=== PATIENT | female | born 1970 | race Caucasian/White ===

== ENCOUNTER 2018-04-14 18:41 | Emergency (ER) | payer OTHER ==
[2018-04-14 18:48] VITALS: BP 149/101
--- NOTE | 2018-04-14 19:58 | EDPHY ---
H & P Time Seen by Provider: 04/14/18 19:32 HPI/ROS: CHIEF COMPLAINT: Left eye complaint HISTORY OF PRESENT ILLNESS: Patient is a 39-year-old female who presents emergency department with mild swelling in the left lateral aspect of her left eye. She states that she has been dealing with severe allergies. She is currently taking Claritin in the morning and Benadryl at night. She noticed the swelling in her left eye today. There is no redness. There is no pain. She has no visual change. No fevers or chills. No trauma. REVIEW OF SYSTEMS: My complete review of systems is negative except as mentioned in the HPI. Past Medical/Surgical History: Includes allergies Past surgical history: Appendectomy, T and a Smoking Status: Never smoked Physical Exam: Vitals noted GENERAL: Well-appearing, in no acute distress, alert. Visual acuity: Noted. Eyelids: Normal inspection, everted for exam. Conjunctiva and sclera: No foreign material. No subconjunctival hemorrhage. No exudate. Not injected. Patient has a small chemosis laterally of the left eye Corneas: Normal inspection. Examined with fluorescein dye: No uptake, abrasion, or ulcer. EOMs: Intact. Pupils: PERRL, normal accommodation. Anterior chambers: Normal inspection. No hyphema. No cells or flare. Posterior segments: Normal funduscopic exam NECK: [No thyromegaly, no lymphadenopathy, supple. RESPIRATORY: Clear to auscultation bilaterally, no rales, rhonchi or wheezing. CVS: Regular rate and rhythm, no rubs, murmurs, or gallops. ABDOMEN: Soft, nontender, nondistended, no organomegaly. SKIN: Normal color, no rash, warm, dry. No pallor. EXTREMITIES: No pedal edema, no calf tenderness, no Homans sign or cords, no joint swelling. NEURO/PSYCH: Alert and oriented x3, normal mood and affect, normal motor sensory exam. No obvious cranial nerve deficit. Constitutional: Initial Vital Signs Temperature (C) 36.7 C 04/14/18 18:46 Heart Rate 101 H 04/14/18 18:46 Respiratory Rate 16 04/14/18 18:46 Blood Pressure 149/101 H 04/14/18 18:46 O2 Sat (%) 95 04/14/18 18:46 O2 Delivery Mode Room Air Allergies/Adverse Reactions: penicillin G Allergy (Verified 04/14/18 18:45) Penicillins Allergy (Verified 04/14/18 18:45) Sulfa (Sulfonamide Antibiotics) Allergy (Verified 04/14/18 18:45) sulfamethoxazole [From Bactrim] Allergy (Verified 04/14/18 18:45) trimethoprim [From Bactrim] Allergy (Verified 04/14/18 18:45) Home Medications: Medication Instructions Recorded Claritin 04/14/18 Flonase Nasal [place] 04/14/18 Ketotifen Fumarate 04/14/18 Medical Decision Making ED Course/Re-evaluation: In the emergency department I discussed possible etiologies with the patient. I answered all her questions. Patient will follow up with Ophthalmology. She was given warnings prior to leaving. Patient will take Zyrtec daily as well as Benadryl. She also continues anti-inflammatory eyedrops. Differential Diagnosis: My differential includes but is not limited to conjunctivitis, ecchymosis, allergic reaction, pinquecula, pterygium Departure - Departure Disposition: Home, Routine, Self-Care Clinical Impression: Chemosis Qualifiers: Laterality: left Qualified Code(s): H11.422 - Conjunctival edema, left eye Condition: Good Instructions: Conjunctivitis (ED) Additional Instructions: Take Zyrtec daily as directed. Use Benadryl as needed. Continue use your eye drops. Follow up with your eye doctor. Referrals: Mary Hay MD [Primary Care Provider] - As per Instructions Priscilla Wan MD [Non Staff Provider ()] - 5-7 days, call for appt.
== END 2018-04-14 19:59 | disposition home or self-care (01) ==
DX: H11.422 Conjunctival edema, left eye (principal)